=== PATIENT | male | born 1990 | race Caucasian/White ===

== ENCOUNTER 2024-04-24 14:46 | Emergency (ER) | payer MEDICARE ==
[~2024-04-24] VITALS: Ht 187.9 cm; Wt 108.9 kg
[2024-04-24] MEDS ORDERED: BENZONATATE 100 MG CAP PO ONE (15:35)
[2024-04-24] MEDS ORDERED: BENZONATATE100 M1 PO (16:57)
== END 2024-04-24 17:07 | disposition home or self-care (01) ==
LOC: ED 14:46
DX: J06.9 Acute upper respiratory infection, unspecified (principal); Z20.822 Contact with and (suspected) exposure to COVID-19; R11.10 Vomiting, unspecified